=== PATIENT | female | born 1945 | race Caucasian/White ===

== ENCOUNTER 2019-03-17 19:10 | Observation (INO) | payer MEDICARE ==
[2019-03-17] MEDS ORDERED: Ondansetron ODT 4 MG TAB PO PRN (20:32)
[2019-03-17] MEDS ORDERED: Ondansetron PF 4 MG/2 ML Vial IVP PRN (20:32)
[2019-03-17 21:14] LABS: Bilirubin Negative (Negative); Blood, Urine Negative (Negative); Clarity CLEAR (Clear); Glucose, Urine (Dipstick) Negative (Negative); Leukocyte Negative (Negative); Nitrite Negative (Negative); Protein, Urine (Dipstick) Negative (Neg-Trace); Specific Gravity, Urine 1.003 (1.002-1.036); Urobilinogen 0.2 mg/dL (0.2-1.0)
[2019-03-17 21:38] LABS: Troponin I Less than 0.010 ng/mL (< 0.028)
[2019-03-17 23:30] VITALS: BMI 29.4
[2019-03-18 00:35] LABS: Troponin I Less than 0.010 ng/mL (< 0.028)
--- NOTE | 2019-03-18 01:11 | HP ---
PRIMARY CARE DOCTOR: Dr. Faisal Sun. CODE STATUS: Full code. TIME OF EVALUATION: 8:50 p.m. CHIEF COMPLAINT: Vertigo. HISTORY OF PRESENT ILLNESS: This is a 73-year-old female patient with past medical history of GERD, no other significant problems, came to the hospital from [place], [facility] because the patient had an episode of dizziness that was persistent, no clear triggers, no alleviating factors, associated with nausea. Symptoms were severe. The symptoms were present for the past 8 hours on and off, worsened by movements. REVIEW OF SYSTEMS: CONSTITUTIONAL: No fever, chills, or generalized weakness. RESPIRATORY: No cough, sputum production, or shortness of breath. CARDIOVASCULAR: No chest pain or palpitation. GASTROINTESTINAL: No nausea. No vomiting, diarrhea, or abdominal pain. EMERGENCY RESPONSE TECHNICIAN: The patient has dizziness. No headache or feeling lightheaded. GENITOURINARY: No burning on urination. EXTREMITIES: No leg swelling. All other systems were reviewed and negative except for the findings mentioned above. PAST MEDICAL HISTORY: As mentioned in the HPI. SURGICAL HISTORY: Cholecystectomy, right foot surgery, abdominal surgery. PSYCH HISTORY: No psych history. SOCIAL HISTORY: No alcohol. No drugs. No smoking history. FAMILY HISTORY: Mother had a history of diabetes and colon cancer, mom was blind, coronary artery disease. Father was healthy. PHYSICAL EXAMINATION: VITAL SIGNS: On presentation, blood pressure 176/74 with heart rate 67, respiratory rate was 16, temperature 98.7, pain 0/10, oxygen saturation was 98% on room air. GENERAL APPEARANCE: The patient is alert, oriented, not in acute distress. HEENT: Eyes; normal conjunctivae. Moist oral mucosa. Anicteric. No JVD. RESPIRATORY: Bilateral air entry. No rales. No wheezes. Symmetric expansion. CARDIOVASCULAR: Normal rate. Regular rhythm. No murmurs. No gallop. No edema. ABDOMEN: Soft. Normal bowel sounds. MUSCULOSKELETAL: Baseline range of motion and strength. No tenderness. SKIN: Warm and intact. No pallor. No rash. No redness. Peripheral pulses are present. Capillary refill seems to be intact. NEURO: The patient has no evidence of any new focal weakness; however, the patient does have difficulty doing the maneuver of finger-nose where she had some ataxic movements on the right side. The cranial nerves seems to be intact. PSYCH: The patient is in good mood. No anxiety. Optimal judgment. DIAGNOSTIC DATA: EKG was reviewed. The patient has normal sinus rhythm with a rate of 67 with HI 154, QRS 84, QT corrected 473. CT head; no CT evidence of any acute intracranial process. Chest x-ray; no acute process. LABORATORY DATA: Labs were reviewed. The patient has a white count of 8.8, hemoglobin 13.4, MCV 89.3, platelet count 288. Chemistry; the patient has sodium of 139, potassium 3.9, chloride 104, carbon dioxide 25, anion gap 14, BUN 13, creatinine 0.76, GFR 75, glucose 133, calcium 9.7, total bilirubin 0.7. LFTs were negative. Troponin was negative. Triglyceride 283, cholesterol 273, LDL cholesterol 170. Urine was done, white count 4 to 6, the rest was negative. ASSESSMENT AND PLAN: The patient will be placed in the hospital with the following medical problems. 1. Possible transient ischemic attack of posterior fossa given the dizziness. The patient also has some ataxic movement on the right hand, not very significant but present. We will do stroke protocol with MRI, echo, and carotid Doppler, and consult Neurology, we will follow recommendations. Rest of treatment depending on workup results. 2. Hypercholesteremia, this is a chronic problem. The patient has allergies to statins and Zetia, so she is not on any medication as of this time. Low-cholesterol diet is advised. 3. Hyperglycemia that is minimal, could be due to acute distress or oral glucose intolerance. No diagnosis of diabetes though. We will monitor. No need for any acute intervention at this point. Job ID: [id number]
[2019-03-18 03:02] LABS: Troponin I Less than 0.010 ng/mL (< 0.028)
[2019-03-18 05:17] LABS: #Eosinphils 0.1 thou/uL (0.0-0.7); #Lymphocytes 3.8 thou/uL (1.20-3.40); #Monocytes 0.7 thou/uL (0.11-0.59); #Neutrophils 3.9 thou/uL (1.40-6.50); %Basophils 0.4 % (0.0-1.0); %Eosinophils 0.9 % (0.0-10.0); %Monocytes 8.2 % (0.0-10.0); %Neutrophils 45.6 % (42.0-75.0); Hemoglobin 13.1 g/dL (12.0-16.0); Mean Corpuscular HGB CONC 34.6 g/dL (32.0-36.0); Mean Corpuscular Hemoglobin 32.2 pg (27.0-31.0); Mean Corpuscular Volume 92.9 fL (78.0-98.0); Mean Platelet Volume 7.7 fL (7.4-10.4); Platelet Count 297 thou/uL (130-400); RBC Distribution Width 11.2 % (11.5-14.5); Red Blood Cell (RBC) Count 4.07 mill/uL (4.20-5.40); White Blood Cell (WBC) Count 8.5 thou/uL (4.8-10.8)
[2019-03-18 05:36] LABS: Anion Gap 12 mmol/L (10-20); BUN (Urea Nitrogen) 11 mg/dL (9.8-20.1); Calc. Creatinine Clearance 83 mL/min (70-130); Calcium 9.6 mg/dL (7.8-10.44); Carbon Dioxide 24 mmol/L (23-31); Cardiac Risk 5.6 (Less than 4.5); Chloride 107 mmol/L (98-107); Cholesterol 252 mg/dl (< 200 Desired); Estimated GFR-MDRD 77; Glucose 106 mg/dL (83-110); HDL Cholesterol 45 mg/dL (>60 Neg Risk); LDL Cholesterol, Calculated 182 mg/dL; Potassium 3.7 mmol/L (3.5-5.1); Sodium 139 mmol/L (136-145); Triglycerides 126 mg/dL (Less than 150)
--- NOTE | 2019-03-18 07:10 | PDOC.PN ---
- Subjective Encounter Start Date: 03/18/19 Encounter Start Time: 10:20 Subjective: Patient feeling much better. No more dizziness. Has chronic diplopia after -: looking up from reading, going on since 90s. No other neuro symptoms. -: Ambulating well. Eating well. - Objective Resuscitation Status - Order Detail: 03/17/19 20:32 Resuscitation Status Routine Resuscitation Status: FULL: Full Resuscitation MAR Reviewed: Yes Vital Signs & Weight: Vital Signs (12 hours) Temp Pulse Resp BP BP Pulse Ox 03/18/19 04:00 98.1 F 60 16 140/64 97 03/18/19 00:00 97.9 F 58 L 16 111/47 L 96 03/17/19 21:30 97.5 F L 71 18 145/74 H 97 Weight Weight 171 lb 9 oz I&O: 03/17/19 03/18/19 03/19/19 06:59 06:59 06:59 Intake Total 300 Balance 300 Result Diagrams: 03/18/19 04:56 03/18/19 04:56 Radiology Reviewed by me: Yes (Carotids with plaque but no hemodyn sig stenosis) Phys Exam - Physical Examination Constitutional: NAD HEENT: PERRLA, moist MMs Respiratory: no wheezing, no rales, no rhonchi Cardiovascular: RRR, no significant murmur Gastrointestinal: soft, positive bowel sounds Neurological: non-focal, moves all 4 limbs DTRs normal bilaterally, EOMI, mild lateral nystagmus worse on right, no rotary or vertical Psychiatric: normal affect, A&O x 3 Dx/Plan (1) Dizziness Code(s): R42 - DIZZINESS AND GIDDINESS Status: Acute Comment: MRI, ECHO, Carotid U/S and Neuro consult to r/o posterior circulation ischemia/stroke. Most likely peripheral with lateral nystagmus worse on right. Symptoms resolved. If w/u negative can go home. (2) Hypercholesteremia Code(s): E78.00 - PURE HYPERCHOLESTEROLEMIA, UNSPECIFIED Status: Chronic Comment: allergic to Statins and Zetia, treating with diet - Plan cont current plan of care Can d/c home if stroke workup negative * . - Discharge Day Encounter end time: 10:30
[2019-03-18] MEDS ORDERED: Meclizine HCl 25 MG TAB PO PRN (07:11)
[2019-03-18] MEDS ORDERED: Diazepam 5 MG TAB PO SCH ×2 (08:45→10:30)
[2019-03-18] MEDS ORDERED: Aspirin Chewable 81 MG TAB PO SCH (09:00)
[2019-03-18] MEDS ORDERED: Enoxaparin Sodium 40 MG/0.4 ML SYRINGE SC SCH (09:00)
--- NOTE | 2019-03-18 09:35 | ULT ---
US Carotid Doppler STANDARD History: [Stroke] Comparison: None. Findings: Real-time grayscale color and spectral analysis of the extracranial carotid and vertebral a rteries was performed. Moderate atherosclerotic plaque of both carotid bulbs. Antegrade flow both vertebral arteries. No elevated peak systolic velocities within the internal carotid arteries. Impression: No hemodynamically significant stenosis.
--- NOTE | 2019-03-18 11:37 | MRI ---
EXAM: Brain MRI Without contrast: HISTORY: TIA COMPARISON: CT, 03/17/2019 FINDINGS: Multiplanar multisequence MRI examination of the brain is performed. The ventricles are within normal limits of size shape and position. No mass or midline shift. No evidence for intra or extra-axial hemorrhage. No evidence for abnormal restricted diffusion. No evidence for acute infarct. Normal-appearing flow voids are noted. The extracranial soft tissues and calvarial marrow signal appear within normal limits. Visualized sinuses and mastoids are unremarkable. Mild age-related atrophy and chronic white matter ischemic change. IMPRESSION: No significant acute intracranial process. No mass or bleed. No acute infarct.
[2019-03-18] MEDS ORDERED: Sodium Chloride 0.9% 500 ML IV SCH (15:15)
[2019-03-18 15:24] VITALS: TEMP 98
[2019-03-18 16:42] VITALS: BP 129/55
--- NOTE | 2019-03-19 04:38 | DIS ---
DATE OF ADMISSION: 03/17/2019 DATE OF DISCHARGE: 03/18/2019 PRIMARY CARE PHYSICIAN: Dr. Chau. REASON FOR ADMISSION: Dizziness. DIAGNOSES AT DISCHARGE: 1. Dizziness, resolved, likely peripheral. 2. Hypercholesterolemia. PROCEDURES: 1. Carotid Dopplers showing some calcifications in the bilateral carotid bulbs, but no hemodynamically significant stenosis. 2. MRI of the brain showing no acute intracranial abnormalities. No evidence of a stroke. 3. Echocardiogram results pending. CONSULTATIONS: None. SUMMARY OF HOSPITAL COURSE: This is a 73-year-old white female with known history of hypercholesterolemia, who is not able to take statins or Zetia due to allergies. She was in her normal state of health when she got episode of severe dizziness without triggers that was persistent, present for 8 hours on and off, worsened by movements. She was seen in an outside emergency room, [place], where she had a negative CT of the brain. There was concern for possibility of central cause and so the patient was transferred here for further workup. In the hospital here, the patient has been asymptomatic. She had complete resolution of all of her dizziness, has been able to ambulate without any dizziness at all. No other neurologic signs. She had carotid Dopplers and MRI done as above, her echocardiogram results are still pending. The patient has a normal neurologic exam now. She did have to have some Valium given and she has had some orthostatic hypotension since that dose of medicine, although when she stands up she does not feel dizzy or lightheaded even though her blood pressure drops. We have given her some IV fluids and are rechecking her orthostatics to make sure that those are improving. If she remains asymptomatic and has improvement in her blood pressures with the fluids and allowing the Valium to wear out of her system then she will be able to be discharged home. DISCHARGE MANAGEMENT: Location: Discharged home. Followup: Follow up with primary care physician in 1 week to check on echo results and with Dr. Mejia in 2 to 3 weeks if she has any persistent dizziness symptoms. Activity: As tolerated. Diet: Healthy heart, low-cholesterol diet. DISCHARGE MEDICATIONS: 1. Continue aspirin 81 mg daily. 2. Meclizine 25 mg every 8 hours as needed for dizziness, tablets dispensed. Job ID: [id number]
== END 2019-03-18 17:40 | disposition home or self-care (01) ==
LOC: ERS 19:10 → 2SE 20:22
PROVIDERS: ADMIT Internal Medicine; ATTEND Internal Medicine
DX: R42 Dizziness and giddiness (principal); K21.9 Gastro-esophageal reflux disease without esophagitis; E78.00 Pure hypercholesterolemia, unspecified; R73.9 Hyperglycemia, unspecified; Z79.82 Long term (current) use of aspirin; Z88.8 Allergy status to other drugs, medicaments and biological substances
CPT/HCPCS: 70551; 80048; 80061; 81003; 84484 ×2; 85025; 93005; 93306; 93880; 96372; 99285; G0378 ×2; 36415; J1650

== ENCOUNTER 2023-11-05 06:08 | Inpatient (IN) | payer MEDICARE ==
[2023-11-05] MEDS ORDERED: Acetaminophen 325 MG TAB PO PRN (09:17)
[2023-11-05] MEDS ORDERED: Bisacodyl 10 MG SUPP PR PRN (09:24)
[2023-11-05] MEDS ORDERED: Bisacodyl 5 MG TAB PO PRN (09:24)
[2023-11-05] MEDS ORDERED: Senokot S 8.6-50 MG TAB PO PRN (09:24)
[2023-11-05] MEDS: Lorazepam 2 MG/ML VIAL SLOW IVP SCH (10:32)
[2023-11-05 11:05] VITALS: BMI 30.8
[2023-11-05 14:13] LABS: ALT (SGPT) 14 U/L (8-55); AST (SGOT) 14 U/L (5-34); Albumin 3.9 g/dL (3.4-4.8); Alkaline Phosphatase 86 U/L (40-110); Anion Gap 12 mmol/L (10-20); BUN (Urea Nitrogen) 13 mg/dL (9.8-20.1); Bilirubin, Total 0.8 mg/dL (0.2-1.2); Calc. Creatinine Clearance 71 mL/min (70-130); Calcium 9.2 mg/dL (7.8-10.44); Carbon Dioxide 27 mmol/L (23-31); Chloride 106 mmol/L (98-107); Estimated GFR 74; Globulin 2.5 g/dL (2.4-3.5); Glucose 213 mg/dL (83-110); Potassium 3.9 mmol/L (3.5-5.1); Protein, Total 6.4 g/dL (5.8-8.1); Sodium 141 mmol/L (136-145)
[2023-11-05 15:06] LABS: #Eosinphils 0.1 thou/uL (0.0-0.7); #Monocytes 0.7 thou/uL (0.11-0.59); #Neutrophils 3.3 thou/uL (1.40-6.50); %Basophils 0.3 % (0.0-1.0); %Eosinophils 1.5 % (0.0-10.0); %Lymphocytes 39.8 % (21.0-51.0); %Monocytes 10.3 % (0.0-10.0); Hematocrit 33.8 % (36.0-47.0); Hemoglobin 11.7 g/dL (12.0-16.0); Mean Corpuscular HGB CONC 34.6 g/dL (32.0-36.0); Mean Corpuscular Volume 92.3 fl (78.0-98.0); Platelet Count 305 10x3/uL (130-400); RBC Distribution Width 12.3 % (11.5-14.5); Red Blood Cell (RBC) Count 3.66 mill/uL (4.20-5.40); White Blood Cell (WBC) Count 6.8 10x3/uL (4.8-10.8)
[2023-11-05] MEDS: Famotidine 20 MG TAB PO SCH (20:13)
[2023-11-06] MEDS: Lorazepam 2 MG/ML VIAL SLOW IVP SCH (06:36)
[2023-11-06 07:07] LABS: #Eosinphils 0.1 thou/uL (0.0-0.7); #Monocytes 0.6 thou/uL (0.11-0.59); #Neutrophils 3.4 thou/uL (1.40-6.50); %Basophils 0.3 % (0.0-1.0); %Lymphocytes 41.3 % (21.0-51.0); %Monocytes 8.4 % (0.0-10.0); %Neutrophils 47.9 % (42.0-75.0); Hematocrit 35.2 % (36.0-47.0); Hemoglobin 11.9 g/dL (12.0-16.0); Mean Corpuscular HGB CONC 33.8 g/dL (32.0-36.0); Mean Corpuscular Hemoglobin 31.9 pg (27.0-31.0); Mean Corpuscular Volume 94.4 fl (78.0-98.0); Mean Platelet Volume 10.2 fL (7.4-10.4); Platelet Count 311 10x3/uL (130-400); RBC Distribution Width 12.5 % (11.5-14.5); Red Blood Cell (RBC) Count 3.73 mill/uL (4.20-5.40); White Blood Cell (WBC) Count 7.2 10x3/uL (4.8-10.8)
[2023-11-06 07:17] LABS: Hemoglobin A1c 7.2 % (4.0-6.0)
[2023-11-06 07:35] LABS: Anion Gap 14 mmol/L (10-20); BUN (Urea Nitrogen) 14 mg/dL (9.8-20.1); CK (CPK) 25 U/L (29-168); Calc. Creatinine Clearance 79 mL/min (70-130); Calcium 9.3 mg/dL (7.8-10.44); Carbon Dioxide 23 mmol/L (23-31); Cardiac Risk 5.5 (Less than 4.5); Chloride 107 mmol/L (98-107); Cholesterol 241 mg/dl (< 200 Desired); Estimated GFR 84; Glucose 157 mg/dL (83-110); HDL Cholesterol 44 mg/dL (>60 Neg Risk); LDL Cholesterol, Calculated 166 mg/dL; Sodium 140 mmol/L (136-145); Triglycerides 155 mg/dL (Less than 150)
[2023-11-06] MEDS: Famotidine 20 MG TAB PO SCH ×2 (08:15→20:01)
[2023-11-06] MEDS: Clopidogrel Bisulfate 75 MG TAB PO SCH (08:15)
[2023-11-06] MEDS: Aspirin 81 mg Enteric Coated Tablet PO SCH (08:15)
[2023-11-06] MEDS ORDERED: Magnevist 469MG/ML 20 ML VIAL ONE (09:16)
[2023-11-06 10:49] LABS: Syphilis Antibody Nonreactive (Nonreactive); Syphilis Antibody Index 0.03 S/CO (<1.00 Non-Reactive)
[2023-11-06] MEDS ORDERED: cloNIDine 0.1 MG TAB PO PRN (11:41)
[2023-11-06] MEDS ORDERED: Polyethylene Glycol 3350 17 GM Packet PO PRN (18:11)
[2023-11-06] MEDS ORDERED: Atorvastatin Calcium 40 MG TAB PO SCH (21:00)
[2023-11-07 04:23] LABS: #Eosinphils 0.1 thou/uL (0.0-0.7); #Monocytes 0.6 thou/uL (0.11-0.59); #Neutrophils 2.8 thou/uL (1.40-6.50); %Basophils 0.3 % (0.0-1.0); %Eosinophils 1.9 % (0.0-10.0); %Lymphocytes 47.5 % (21.0-51.0); %Monocytes 9.1 % (0.0-10.0); %Neutrophils 41.2 % (42.0-75.0); Hematocrit 34.5 % (36.0-47.0); Hemoglobin 11.6 g/dL (12.0-16.0); Mean Corpuscular HGB CONC 33.6 g/dL (32.0-36.0); Mean Corpuscular Hemoglobin 31.3 pg (27.0-31.0); Platelet Count 290 10x3/uL (130-400); RBC Distribution Width 12.4 % (11.5-14.5); Red Blood Cell (RBC) Count 3.71 mill/uL (4.20-5.40); White Blood Cell (WBC) Count 6.9 10x3/uL (4.8-10.8)
[2023-11-07 05:01] LABS: Anion Gap 12 mmol/L (10-20); BUN (Urea Nitrogen) 11 mg/dL (9.8-20.1); Calc. Creatinine Clearance 67 mL/min (70-130); Calcium 9.2 mg/dL (7.8-10.44); Carbon Dioxide 28 mmol/L (23-31); Chloride 106 mmol/L (98-107); Estimated GFR 72; Glucose 140 mg/dL (83-110); Sodium 142 mmol/L (136-145)
[2023-11-07] MEDS ORDERED: Lorazepam 2 MG/ML VIAL SLOW IVP SCH (07:23)
[2023-11-07] MEDS: Aspirin 81 mg Enteric Coated Tablet PO SCH (10:05)
[2023-11-07] MEDS: Famotidine 20 MG TAB PO SCH ×2 (10:05→20:19)
[2023-11-07] MEDS: Clopidogrel Bisulfate 75 MG TAB PO SCH (10:05)
[2023-11-08 05:12] LABS: #Eosinphils 0.1 thou/uL (0.0-0.7); #Monocytes 0.5 thou/uL (0.11-0.59); #Neutrophils 2.7 thou/uL (1.40-6.50); %Basophils 0.3 % (0.0-1.0); %Eosinophils 1.6 % (0.0-10.0); %Lymphocytes 46.7 % (21.0-51.0); %Monocytes 8.1 % (0.0-10.0); %Neutrophils 43.1 % (42.0-75.0); Hematocrit 35.9 % (36.0-47.0); Hemoglobin 12.2 g/dL (12.0-16.0); Mean Corpuscular Hemoglobin 31.7 pg (27.0-31.0); Mean Corpuscular Volume 93.2 fl (78.0-98.0); Mean Platelet Volume 10.2 fL (7.4-10.4); Platelet Count 318 10x3/uL (130-400); RBC Distribution Width 12.3 % (11.5-14.5); Red Blood Cell (RBC) Count 3.85 mill/uL (4.20-5.40); White Blood Cell (WBC) Count 6.3 10x3/uL (4.8-10.8)
[2023-11-08 07:48] LABS: Anion Gap 12 mmol/L (10-20); BUN (Urea Nitrogen) 9 mg/dL (9.8-20.1); Calc. Creatinine Clearance 0 mL/min (70-130); Calcium 9.1 mg/dL (7.8-10.44); Carbon Dioxide 25 mmol/L (23-31); Chloride 108 mmol/L (98-107); Estimated GFR 80; Glucose 134 mg/dL (83-110); Potassium 3.7 mmol/L (3.5-5.1); Sodium 141 mmol/L (136-145)
[2023-11-08] MEDS: Famotidine 20 MG TAB PO SCH (10:27)
[2023-11-08] MEDS: Aspirin 81 mg Enteric Coated Tablet PO SCH (10:27)
[2023-11-08] MEDS: Clopidogrel Bisulfate 75 MG TAB PO SCH (10:28)
[2023-11-08 12:48] VITALS: BP 173/79; TEMP 97.5
== END 2023-11-08 14:15 | disposition home health service (06) | DRG 948 ==
LOC: 2SW 07:45 → OBSVTOIN 11-06 15:52
PROVIDERS: ADMIT Student in an Organized Health Care Education/Training Program; ATTEND Internal Medicine
DX: R53.1 Weakness (principal); E87.0 Hyperosmolality and hypernatremia; R82.81 Pyuria; E11.9 Type 2 diabetes mellitus without complications; E78.5 Hyperlipidemia, unspecified; Z66 Do not resuscitate; I10 Essential (primary) hypertension; R27.8 Other lack of coordination; M48.061 Spinal stenosis, lumbar region without neurogenic claudication; Z79.899 Other long term (current) drug therapy; Z90.49 Acquired absence of other specified parts of digestive tract; Z90.710 Acquired absence of both cervix and uterus; Z82.49 Family history of ischemic heart disease and other diseases of the circulatory system; Z83.3 Family history of diabetes mellitus
CPT/HCPCS: 36415; 70551; 72141; 72146; 72158; 80048; 80053; 80061; 82550; 82607; 83036; 83520; 85025; 86038; 86140; 86200; 86225; 86780; 93306; 93880; 96372; 96374; 96376; A9579; G0378; J1650; J2060